=== PATIENT | male | born 1970 | race Caucasian/White ===

== ENCOUNTER 2017-10-12 19:37 | Emergency (ER) | payer MEDICAID ==
[~2017-10-12] VITALS: Ht 177.8 cm; Wt 89.8 kg
[2017-10-12 20:05] VITALS: BP_SYST 141
--- NOTE | 2017-10-12 20:39 | NUR ---
PT AMBULATORY TO BED HALLWAY
--- NOTE | 2017-10-12 20:40 | NUR ---
Patient AAO X 4 sitting in bed, c/o right shoulder pain radiating to right elbow x 7 days, denies trauma, states he was stung by a bee prior to start of pain. No acute distress noted. Will continue to monitor.
[2017-10-12] MEDS ORDERED: KETOROLAC TROMETHAMINE 30 MG VIAL IM ONE (21:00)
[2017-10-12] MEDS ORDERED: CYCLOBENZAPRINE HCL 10 MG TABLET (FLEXERIL) PO ONE (21:00)
--- NOTE | 2017-10-12 21:00 | NUR ---
Patient moved to room 7.
[2017-10-12 23:16] VITALS: BP_SYST 136
--- NOTE | 2017-10-12 23:16 | NUR ---
Patient given written and verbal discharge instructions and verbalizes understanding. ER MD discussed with patient the results and treatment provided. Patient in stable condition. ID arm band removed. Rx of naproxen and flexeril given. Patient educated on pain management and to follow up with PMD. Pain Scale 0/10. Opportunity for questions provided and answered.
== END 2017-10-12 23:16 | disposition home or self-care (01) ==
LOC: SED 19:37
DX: S46.911A Strain of unspecified muscle, fascia and tendon at shoulder and upper arm level, right arm, initial encounter (principal); M77.9 Enthesopathy, unspecified; X58.XXXA Exposure to other specified factors, initial encounter; Y93.89 Activity, other specified; Y92.89 Other specified places as the place of occurrence of the external cause; Y99.8 Other external cause status
CPT/HCPCS: 73030; 73080; 96372; 99284; J1885